=== PATIENT | male | born 1990 | race Caucasian/White ===

== ENCOUNTER 2017-08-13 23:04 | Emergency (ER) | payer BC, MEDICAID ==
[~2017-08-13] VITALS: Ht 177.8 cm; Wt 72.6 kg
--- NOTE | 2017-08-13 23:05 | NUR ---
PT BIB [facility] WITH A C/O OF SEIZURE AT HOME. PT IS AA&O X4. PT HAS SMALL LACERATION ON LEFT EYE. PT IS ALSO C/O MID LOWER BACK PAIN. PT'S MOTHER AND FATHER ARE AT THE BEDSIDE.
--- NOTE | 2017-08-14 00:07 | NUR ---
DR. ABRAMS IS AT THE BEDSIDE.
--- NOTE | 2017-08-14 00:20 | NUR ---
Patient discharged to home in stable condition. Written and verbal after care instructions given. Patient verbalizes understanding of instruction. PT AMBULATED OUT WITH A STEADY GAIT. PT'S PARENTS ARE DRIVING PT HOME.
[2017-08-14] MEDS ORDERED: LORAZEPAM 1 MG TABLET ONE (00:24)
[2017-08-14] MEDS ORDERED: LORAZEPAM 1 MG TABLET PO ONE (00:30)
[2017-08-14 00:34] VITALS: BP 98/60
== END 2017-08-14 00:20 | disposition home or self-care (01) ==
LOC: ER 23:07
DX: R56.9 Unspecified convulsions (principal); M54.9 Dorsalgia, unspecified; F90.9 Attention-deficit hyperactivity disorder, unspecified type; Z88.2 Allergy status to sulfonamides; Z88.5 Allergy status to narcotic agent
CPT/HCPCS: 99283; A4606; Z7610

== ENCOUNTER 2018-09-28 22:36 | Emergency (ER) | payer BC, MEDICAID ==
[~2018-09-28] VITALS: Ht 172.7 cm; Wt 77.1 kg
--- NOTE | 2018-09-28 22:45 | NUR ---
PT [id number] FROM HOME C/O UNWITNESSED SEIZURE. HX OF SEIZURES. NAD NOTED. RESP EVEN AND UNLABORED. PT ON MONITOR IN BED 10 WITH MOTHER AT BEDSIDE. WILL CONTINUE TO MONITOR.
[2018-09-28 22:59] VITALS: BP 107/68
[2018-09-28 23:26] LABS: BASOPHILS % (AUTO) 0.5 % (0.0-2.0); HEMATOCRIT 42 % (39-51); HEMOGLOBIN 14.2 g/dL (13.5-17.5); LYMPHOCYTES % (AUTO) 21.7 % (20.0-44.0); MEAN CORPUSCULAR HGB CONC 34 g/dl (31.0-36.0); MEAN CORPUSCULAR VOLUME 87 fL (80-96); MONOCYTES # (AUTO) 0.4 /CMM (0.1-1.30); MONOCYTES % (AUTO) 7.3 % (2.0-12.0); NEUTROPHILS # (AUTO) 3.3 /CMM (1.8-8.9); NEUTROPHILS % (AUTO) 69.5 % (43.0-81.0); PLATELET COUNT (AUTO) 156 /CMM (150-450); RED BLOOD CELL COUNT(AUTO) 4.86 MIL/uL (4.5-6.0); WHITE BLOOD COUNT (AUTO) 4.8 K/uL (4.3-11.0)
[2018-09-28] MEDS ORDERED: LORAZEPAM INJ 2 MG/ML VIAL ONE (23:26)
[2018-09-28] MEDS ORDERED: IV NS 0.9% 1,000 ML BAG IV ONE (23:30)
[2018-09-28] MEDS ORDERED: LORAZEPAM INJ 2 MG/ML VIAL IV ONE (23:30)
--- NOTE | 2018-09-28 23:33 | NUR ---
BLOOD DRAWN AND GIVEN TO LAB
[2018-09-28 23:36] LABS: CALCIUM, SERUM 9.1 mg/dL (8.5-10.1); CARBON DIOXIDE 30 mmol/L (21-32); CHLORIDE 102 mmol/L (98-107); GLUCOSE 98 mg/dL (74-106); POTASSIUM 3.6 mmol/L (3.5-5.1); SODIUM SERUM 140 mmol/L (136-145); UREA NITROGEN, BLOOD 14 mg/dL (7-18)
[2018-09-28 23:37] LABS: ALCOHOL, BLOOD < 3 mg/dL (0-0)
--- NOTE | 2018-09-28 23:46 | NUR ---
RADIOLOGY AT BEDSIDE FOR XRAY
--- NOTE | 2018-09-29 00:55 | NUR ---
IV removed. Catheter intact and site benign. Pressure and 4x4 applied to site. No bleeding noted.Patient discharged to home in stable condition. Written and verbal after care instructions given. Patient verbalizes understanding of instruction.
== END 2018-09-29 01:11 | disposition home or self-care (01) ==
LOC: ER 22:39
DX: R56.9 Unspecified convulsions (principal); F90.9 Attention-deficit hyperactivity disorder, unspecified type; Q87.1 Congenital malformation syndromes predominantly associated with short stature; Z88.2 Allergy status to sulfonamides; Z88.5 Allergy status to narcotic agent
CPT/HCPCS: 36415; 71045-TC; 80048-TC; 85025-TC; G0480; J2060; J7030